=== PATIENT | male | born 1965 | race Caucasian/White ===

== ENCOUNTER 2017-01-19 22:03 | Emergency (ER) | payer MEDICARE, BC | END 2017-01-20 01:40 | disposition home or self-care (01) | LOC: ER 22:03 | DX: N45.1 Epididymitis (principal); M54.5 Low back pain; R10.9 Unspecified abdominal pain; R11.0 Nausea; Z98.84 Bariatric surgery status; F17.290 Nicotine dependence, other tobacco product, uncomplicated; Z88.2 Allergy status to sulfonamides; Z79.899 Other long term (current) drug therapy ==